=== PATIENT | female | born 1995 | race Caucasian/White ===

== ENCOUNTER 2016-09-16 14:03 | Emergency (ER) | payer OTHER ==
[~2016-09-16] VITALS: Ht 157.5 cm; Wt 53.5 kg
[2016-09-16 17:16] LABS: BASOPHIL % 0.6 % (0-2); PLATELET COUNT 376 x10^3mcL (130-400); RED CELL DISTRIBUTION WIDTH 11.6 % (11.5-14.5)
[2016-09-16 17:40] LABS: T4(THYROXINE) 7.6 ug/dL (4.7-13.3)
[2016-09-16 18:46] VITALS: BP 121/66
== END 2016-09-16 18:46 | disposition home or self-care (01) ==
LOC: ED 14:03
PROVIDERS: Emergency Medicine
DX: N93.9 Abnormal uterine and vaginal bleeding, unspecified (principal)

== ENCOUNTER 2017-03-08 01:59 | Emergency (ER) | payer OTHER ==
[2017-03-08 03:56] VITALS: BP 114/76
== END 2017-03-08 03:56 | disposition home or self-care (01) ==
LOC: ED 01:59
DX: J02.0 Streptococcal pharyngitis (principal)
CPT/HCPCS: J1100

== ENCOUNTER 2017-09-22 22:34 | Emergency (ER) | payer OTHER ==
[~2017-09-22] VITALS: Ht 157.5 cm; Wt 55.3 kg
[2017-09-22 22:43] VITALS: Ht 157.5 cm; Wt 55.3 kg
[2017-09-22 23:41] VITALS: BP 134/73
== END 2017-09-22 23:41 | disposition home or self-care (01) ==
LOC: ED 22:34
DX: L98.9 Disorder of the skin and subcutaneous tissue, unspecified (principal)

== ENCOUNTER 2018-09-21 23:44 | Emergency (ER) | payer OTHER ==
[~2018-09-21] VITALS: Ht 157.5 cm; Wt 55.3 kg
[2018-09-21 23:48] VITALS: Ht 157.5 cm; Wt 55.3 kg
[2018-09-22 01:25] VITALS: BP 137/82
== END 2018-09-22 01:25 | disposition home or self-care (01) ==
LOC: ED 23:44
DX: N76.0 Acute vaginitis (principal)
CPT/HCPCS: 87491; 87591

== ENCOUNTER 2018-12-29 10:39 | Inpatient (IN) | payer MEDICAID ==
[~2018-12-29] VITALS: Ht 157.5 cm; Wt 55.3 kg
--- NOTE | 2018-12-29 11:05 | NUR ---
LAB AT BEDSIDE FOR BLOOD DRAW
--- NOTE | 2018-12-29 11:07 | NUR ---
PT BIBA FROM HER FRIEND'S HOME FOR ATTEMPTED SUICIDE VIA OVERDOSE ON ATIVAN TABLETS.PER PATIENT SHE TOOK 14 0.5MG ATIVAN ABOUT 2 HOURS AGO. PT ADMITS TO "[employer] [place]KE" LAST NIGHT AND DRINKING; MEDICS REPORT PT DRANK 1/2 BOTTLE OF DRAKE NAVARRO LAST NIGHT. PT ALSO ADMITTED TO TAKING ONE TABLET OF ATIVAN0.5MG LAST NIGHT. PT STS SHE TAKES ATIVAN FOR DEPRESSION AND ANXIETY. PT'S BELONGINGS ALL REMOVED AND PLACED TO RADIO CABINET WITH LABEL. PT DENIES SI AT THIS TIME STATING SHE REGRETTED IT IMMEDIATELY. PT'S SISTER IS AT BEDSIDE
--- NOTE | 2018-12-29 11:11 | NUR ---
PT SEEN BY DR CLARKE
--- NOTE | 2018-12-29 11:14 | NUR ---
[facility] CALLED AND STATED PT HAS ADDED SEDATION AND RISK FOR RESPIRATORY SYSTEM DEPRESSION - KEEP PATIENT ON O2 MONITOR; DON'T GIVE FLUMAZENIL FOR OVERDOSE; CONTINUE TO MONITOR PATIENT.
[2018-12-29 11:23] LABS: CALCIUM 7.9 mg/dL (8.5-10.1); CARBON DIOXIDE 26.2 mmol/L (21-32); CHLORIDE SERUM 104 mmol/L (98-107); CREATININE SERUM 0.6 mg/dL (0.6-1.0); GFR1 > 60 mL/min; GLUCOSE SERUM 103 mg/dL (74-106); POTASSIUM SERUM 3.3 mmol/L (3.5-5.1); SODIUM SERUM 142 mmol/L (136-145)
[2018-12-29 11:31] LABS: ALBUMIN 3.9 g/dL (3.4-5.0); ALKALINE PHOSPHATASE 60 U/L (46-116); ALT/SGPT 32 U/L (14-59); AST/SGOT 24 U/L (15-37); BASOPHIL % 0.5 % (0-2); BILIRUBIN TOTAL 0.3 mg/dL (0.20-1.00); PLATELET COUNT 393 x10^3mcL (130-400); RED CELL DISTRIBUTION WIDTH 12.9 % (11.5-14.5); TOTAL PROTEIN, SERUM 7.5 g/dL (6.4-8.2)
[2018-12-29 11:41] LABS: FREE T4 1.21 ng/dL (0.76-1.46); FREE THYROXINE INDEX 3.3 ug/dL (1.4-4.5); T3 TOTAL 1.28 ng/mL; T4(THYROXINE) 9.2 ug/dL (4.7-13.3)
[2018-12-29 11:48] LABS: AMPHETAMINE QUAL UR NONE DETECTED (See below)
--- NOTE | 2018-12-29 12:23 | NUR ---
CALLED [facility] TO REQUEST 5150 TO BE WRITTEN. SPOKE TO TAMI, DISPATCH
--- NOTE | 2018-12-29 12:37 | NUR ---
SPOKE TO OFFICER SHLOMO BAHENA [facility]. HE WILL BE OUT TO WRITE 2107 HOLD
--- NOTE | 2018-12-29 12:45 | NUR ---
DR CLARKE SPOKE WITH PT AND SISTER AT BEDSIDE REGARDING POC.PT OK TO EAT/DRINK PER DR CLARKE.PT STILL DROWSY BUT COOPERATIVE AND NO CHANGES WITH DROWSINESS INTENSITY. PT WAS ABLE TO WALK STEADILY WITH MINIMAL ASST FROM BATHROOM TO RCHALMETTE
--- NOTE | 2018-12-29 13:03 | NUR ---
OFFICER SHRUTI HERE TO PLACE PT ON 5150 FOR DTS
--- NOTE | 2018-12-29 13:15 | NUR ---
ORIGINAL 5150 HOLD PLACED TO CHART
--- NOTE | 2018-12-29 14:44 | NUR ---
PT WOKE UP- WAS STILL VERTY SLEEPY AND HAD SLURRED SPEECH. PT STATED HER SISTER WAS AT BEDSIDE WHICH WAS CORRECT. PT BP IMPROVED AND IS AT 99/57 AT THIS TIME
[2018-12-29] MEDS ORDERED: ATIVAN0.5 M1 PO (14:57)
--- NOTE | 2018-12-29 15:03 | NUR ---
REPORT GIVEN TO ERIC ANGELES
--- NOTE | 2018-12-29 15:05 | NUR ---
RECEIVED REPORT FROM BURT ANGELES IN ED. AWAITING PATIENT ARRIVAL TO FLOOR.
[2018-12-29 15:41] VITALS: BP 94/58
--- NOTE | 2018-12-29 15:53 | NUR ---
RECEIVED PT FROM ER, PT ADMIT FOR HYPOTENSION AND BENZO OVERDOSE. PT IS VERY LETHERAGIC AT THIS MOMENT, WAKE UP BY VOICE AND SHAKING, A/O 4 ,WHILE AWAKE AND ABLE TO ANSWER SOME QUESTIONS, BUT CONSTANTLY FALL INTO SLEEP DURING THE ASSESSMENT. LUNG SOUND CLEAR BILATERAL, NO COUGH, NO SOB, PT IS ON TELE 6, NSR, DENY ANY CHEST PAIN OR DISCOMFORT, BOWEL SOUND PRESENT ALL 4 QUADRANTS, NO DISTENTION, NO TENDER. PEDAL PULSE PRESENT BOTH FEET, IV AT RIGTH AC, NO LEAKING, NO INFILTRATION. PT CURRENTLY ON 5150 HOLD, FOR SUICIDAL. ACCORDING THE MOTHER. PT CALLED HER STATE SHE TOOK 15 PILLS ATIVAN. AND STATE SHE WANT TO KILL HERSELF. TALKED TO PT AND PT DENY ANY SUICIDAL THOUGHS AT THIS MOMENT. ALL ADLS ASSIST, ALL NEED MET, CALL LIGHT IN REACH, SITTER AT BEDSIDE, WILL CONTINUE TO MONITOR THE PT.
--- NOTE | 2018-12-29 16:42 | NUR ---
SPOKE WITH TAMI KISER TO REQUEST OK FOR OUTSIDE FOOD. TAMI HERNANDEZ FOR FAMILY TO BRING OUTSIDE FOOD.
[2018-12-29 17:51] VITALS: BP 114/89
[2018-12-29 18:12] VITALS: Ht 157.5 cm; Wt 55.3 kg
--- NOTE | 2018-12-29 18:17 | NUR ---
PATIENT'S MOTHER REQUESTED THAT SHE REPLACE PATIENT'S SISTER EMERGENCY CONTACT. INSTRUCTED MOTHER TO GO TO ADMISSIONS TO CHANGE THAT INFORMATION.
--- NOTE | 2018-12-29 18:36 | NUR ---
PER PATIENT REQUEST, THE CASTANEDA CATHERTER SHE CAME UP FROM THE ED WITH WAS REMOVED. 500 ML CLEAR YELLOW URINE EMPTIED. PT TOLERATED IT WELL AND FELT THE URGE TO URINATE IMMEDIATELY AFTER.
--- NOTE | 2018-12-29 19:16 | NUR ---
REPORT GIVEN TO GURVINDER ANGELES. PATIENT RESTING COMFORTABLY IN BED WITH FAMILY AND SITTER AT BEDSIDE. ALL NEEDS MET. ALL QUESTIONS AND CONCERNS ADDRESSED. ALL CARES ENDORSED.
--- NOTE | 2018-12-29 19:28 | NUR ---
AWAKE AND VERBALLY RESPONSIVE. ABLE MAKE NEEDS KNOWN. SLIGHTLY DROWSY, APPARENTLY APPREHENSIVE. FAMILY AT BEDSIDE VERY SUPPORTIVE OF PATIENTS CURRENT PLAN OF CARE. SITTER AT BEDSIDE FOR SAFETY. DENIES ANY PAIN/DISCOMFORT AT THIS TIME.
[2018-12-29 20:35] VITALS: BP 94/61
--- NOTE | 2018-12-30 00:01 | NUR ---
EYES CLOSED, NO FACIAL GRIMACING NOTED. RESPIRATION EVEN AND UNLABORED. CALL LIGHT WITHIN REACH. SITTER AT BEDSIDE.
--- NOTE | 2018-12-30 05:17 | NUR ---
AMBULATED TO BATHROOM FOR PERSONAL NEEDS. KEPT CLEAN AND DRY. ALL NEEDS ATTENDED.
[2018-12-30 06:31] VITALS: BP 85/51
--- NOTE | 2018-12-30 07:05 | NUR ---
ASSUMED CARE OF PATIENT. SEEN RESTING IN BED WITH EQUAL AND UNLABORED RESPIRATIONS. NO APPARENT DISTRESS NOTED. IV ON RAC PATENT AND INFUSING NS AT 100ML/HR. SITTER REMAINS AT BEDSIDE. WILL CONTINUE TO MONITOR.
[2018-12-30 08:02] LABS: CALCIUM 7.7 mg/dL (8.5-10.1); CARBON DIOXIDE 24.6 mmol/L (21-32); CHLORIDE SERUM 110 mmol/L (98-107); CREATININE SERUM 0.8 mg/dL (0.6-1.0); GFR1 > 60 mL/min; GLUCOSE SERUM 84 mg/dL (74-106); POTASSIUM SERUM 4.1 mmol/L (3.5-5.1); SODIUM SERUM 142 mmol/L (136-145)
--- NOTE | 2018-12-30 08:02 | NUR ---
PATIENT DENYING ANY SI AT THIS TIME.
[2018-12-30 08:23] LABS: BASOPHIL % 0.6 % (0-2); PLATELET COUNT 313 x10^3mcL (130-400); RED CELL DISTRIBUTION WIDTH 13.1 % (11.5-14.5)
[2018-12-30 09:05] VITALS: BP 107/59
--- NOTE | 2018-12-30 10:08 | NUR ---
PATIENT IN ROOM WITH NO COMPLAINTS OF PAIN OR DISCOMFORT. SITTER REMAINING AT BEDSIDE. NO NEW ISSUES.
--- NOTE | 2018-12-30 11:28 | NUR ---
PATIENT COMPLAINING OF DISCOMFORT AT LAC IV SITE. IV DC. NEW 22G IV PLACED ON RIGHT FOREARM.
--- NOTE | 2018-12-30 12:53 | NUR ---
PATIENT TRANSFERRED TO [facility]. TELEMONITOR REMOVED. SALINE LOCKED PER ORDERS.
--- NOTE | 2018-12-30 14:01 | NUR ---
PATIENT IN ROOM WITH FAMILY AT BEDSIDE. SITTER AT BEDSIDE. NO NEW ISSUES.
--- NOTE | 2018-12-30 15:32 | NUR ---
PATIENT IN ROOM WITH FRIENDS AT BEDSIDE. NO APPARENT DISTRESS NOTED. NO COMPLAINTS OF PAIN OR DISCOMFORT. SITTER REMAINS AT BEDSIDE. NO NEW ISSUES.
[2018-12-30 17:30] VITALS: BP 139/72
--- NOTE | 2018-12-30 17:40 | NUR ---
PATIENTS MOTHER AT TIP CUTTER REPORTING THAT PATIENT IS IRRITABLE AND TREMULOUS. PATIENTS MOTHER STATES DAUGHTER HAS BEEN DRINKING FOR 2 WEEKS STRAIGHT AND IS GOING TO WITHDRAWALS. UPON ASSESSMENT OF PATIENT, PATIENT IS TEARFUL AND WANTING TO GO HOME, NO APPARENT SYMPTOMS OF ALCOHOL WITHDRAWAL ARE NOTED. DENIES ANY TREMORS, HEADACHES, CHILLS. WHEN DISCUSSING WITH THE PATIENT, STATE SHE FEELS "TRAPPED" IN HER ROOM AND WISHES SHE CAN GO OUTSIDE. EXPLAINED TO PATIENT OF HER SITUATION AND PLAN WITH AND PATIENT WAS UNDERSTANDING.
--- NOTE | 2018-12-30 18:46 | NUR ---
PATIENT REQUESTING TO BE "WALKED OUT TO SMOKE A CIGARETTE." DISCUSSED WITH PATIENT, WILLING TO USE NICOTINE PATCH. MARGI GARCIA.
--- NOTE | 2018-12-30 18:52 | NUR ---
PATIENT IN ROOM WITH FAMILY AT BEDSIDE. NO COMPLAINTS OF PAIN OR DISCOMFORT. SALINE LOCKED AT THIS TIME. WILL ENDORSE CARE TO ONCOMING RN.
--- NOTE | 2018-12-30 19:39 | NUR ---
AWAKE AND VERBALLY RESPONISVE. ABLE TO MAKE NEEDS KNOWN. SKIN WARM AND DRY TO TOUCH. RESPIRATION EVEN AND UNLABORED. DENIES ANY PAIN/DISCOMFORT AT THIS TIME. DENIES ANY IDEATION TO HURT SELF/OTHERS. SITTER AT BEDSIDE FOR CLOSE WATCH. WILL CONTINUE TO MONITOR..
[2018-12-30 19:50] VITALS: BP 122/75
--- NOTE | 2018-12-30 21:30 | NUR ---
STARTED ON ZOLOGT 25MG PO ORDERED. NICODERM CQ APPLIED ID TO RIGHT SHOULDER. SVETLANA RIBERA PROVIDED AND TOLERATED WELL.
--- NOTE | 2018-12-31 00:01 | NUR ---
EYES CLOSED, APPARENTLY ASLEEP SOUNDLY. BUT RESPONSIVE TO VERBAL/TACTILE STIMULI. CALL LIGHT WITHIN REACH.
--- NOTE | 2018-12-31 02:00 | NUR ---
C/O NAUSEA BUT NO VOMITING NOTED. ZOFRAN 4MG IVP PRN MEDICATION.
--- NOTE | 2018-12-31 03:00 | NUR ---
PT CALIMED ZOFRAN VERY EFFECTIVE, TOTAL RELIEF , NO FURTHER NAUSEA. CALM IN BED AT THIS TIME.
--- NOTE | 2018-12-31 05:22 | NUR ---
DENIES ANYPAIN/DISCOMFORT ATY THIS TIME. KEPT CLEAN AND DRY, ALL NEEDS ATTENDED
[2018-12-31 05:46] VITALS: BP 100/56
--- NOTE | 2018-12-31 07:40 | NUR ---
PATIENT RESTING IN BED, DENIES HEADACHE & DIZZINESS. NO ACUTE DISTRESS NOTED. PATIENT ON 5150 HOLD. PATIENT DENIES SUICIDAL IDEATIONS, DENIES ACTIVE PLAN FOR SUICIDE. PATIENT DENIES N/V. IV TO LFA SALLINE LOCK, NO S/S OF INFILTRATION. CALL LIGHT WITHIN REACH, BED IN LOW POSITION. SISTER AT BEDSIDE FOR SAFETY PRECAUTION. WILL CONTINUE TO MONITOR FOR CHANGES.
[2018-12-31 08:30] VITALS: BP 110/81
[2018-12-31 12:25] VITALS: BP 115/76
--- NOTE | 2018-12-31 13:00 | NUR ---
PATIENT IS SITTING UP IN BED EATING, PATIENT TOLERATING FOOD. SITTER AT BEDSIDE. WILL CONTINUE TO MONITOR .
--- NOTE | 2018-12-31 14:30 | NUR ---
PATIENT IS UP AND SHOWERING, NO ACUTE DISTRESS NOTED. WILL CONTINUE TO MONITOR PATIENT.
[2018-12-31 16:48] VITALS: BP 106/59
--- NOTE | 2018-12-31 17:37 | NUR ---
PATIENT UP AND WALKING TO THE BATHROOM AT THIS TIME, PATIENT DENIES PÉREZ, N,V. NO ACUTE DISTRESS NOTED. FAMILY AT BEDSIDE. SISTER AT BEDSIDE FOR SAFETY. IV TO LFA SALINE LOCK, NO S/S OF INFILTRATION. CALL LIGHT WITHIN REACH, BED IN LOW POSITION, WILL CONTINUE TO MONITOR & ENDORSE REPORT TO NIGHT NURSE.
--- NOTE | 2018-12-31 19:33 | NUR ---
RECEIVED AWAKE SITTING AT THE FOOT PART OF TBE BED, ALERT AND ORIENTED [place], DENIES ANY IDEATION OF HURTING SELF/HURTING OTHERS. SITTER AT BEDSIDE FOR SAFETY PRECAUTION. CALL LIGHT MIAHITHIN REACH, INSTRUCTEDTO CALL FOR ANY ASSISTANCE NEEDED AND VERBALIZED UNDERSTANDING.
[2018-12-31 21:42] VITALS: BP 126/60
--- NOTE | 2019-01-01 00:01 | NUR ---
EYES CLOSED, NO FACIA GRIMACING NOTED. RESPIRATION EVEN AND UNLABORED. NO S/S OF PAIN/DISCOMFORT. CALL LIGHT WITHIN REACH. SITTER AT BEDSIDE FOR SAFETY.
--- NOTE | 2019-01-01 03:49 | NUR ---
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 RROUTINE ADMISSION CARE RENDERED. PLACED COMDORTABLY IN BED. PAIN LEVEL 0/10, WAS GIVEN TORADOL IV AT ER AND PT CLAIMED TOTAL RELIEF. IV SITE AT THE LEFT HNAD INTACT AND PATENT. SKIN WARM AND DRY. NO SKIN BREAKDOWN NOTED. P;ACED CALL LIGHT WITHIN REACH. BED IN LOWEST POSITION AND LOCKED FOR SAFETY. LACY WAS CONTACTED FOR ORDERS.
[2019-01-01 05:29] VITALS: BP 110/69
--- NOTE | 2019-01-01 05:31 | NUR ---
APPARENTLY CONFORTABLE AT THIS TIME. NO FACIAL GRIAMCING NOTED. KEPT CLEAN AND DRY. CALL LIGHT WITHIN REACH.
[2019-01-01 07:30] VITALS: BP 107/63
--- NOTE | 2019-01-01 08:28 | NUR ---
RECEIVED IN NO DISTRESS, AWAKE, ALERT AND ORIENTED. NO C/O PAIN OR DISCOMFORT AT THIS TIME. PT DENIES ANY SUICIDAL IDEATION. VS STABLE. HL PATENT. SITTER AT BEDSIDE, CALL LIGHT WITHIN REACH. WILL CONTINUE WITH PLAN OF CARE.
--- NOTE | 2019-01-01 12:20 | NUR ---
PT C/O LIGHT HEADACHE 10/23. TYLENOL GIVEN. PT IN NO DISTRESS. SITTER AT BEDSIDE.
--- NOTE | 2019-01-01 13:06 | NUR ---
[facility] s/w Yousuf no beds but packet will be fax for wait list once new 5150 is written and fax to call center [facility] s/w Michael no beds but packet will be faxed for wait list once new 5150 is written and fax to call center [facility] s/w Monie no beds [facility] s/w Yarsani no beds [place] s/w Laura no beds [facility] s/w Deja no beds
--- NOTE | 2019-01-01 14:41 | NUR ---
S/W TISH Goff. Still waiting for MD to write 5150 if patient still meet criteria
--- NOTE | 2019-01-01 14:46 | NUR ---
Discount pharmacy card and list to low cost medical clinics given to patient by Vannesa.
[2019-01-01 16:45] VITALS: BP 96/56
--- NOTE | 2019-01-01 17:12 | NUR ---
S/W Emmy (RN for patient) regarding new 5150 for patient. Transferred me to [facility] (SW). did not leave a message since i left her a message already. Will wait on new 5150 for placement
--- NOTE | 2019-01-01 18:43 | NUR ---
REMAINS IN NO DISTRESS. AWAKE AND ALERT. NO CHANGES IN VS. NO C/O PAIN OR DISCOMFORT. PT DENIES ANY SUICIDAL IDEATION. FAMILY AT BEDSIDE. SITTER AT BEDSIDE. CALL LIGHT WITHIN REACH. WILL BE ENDORSED TO INCOMING SHIFT.
[2019-01-01 19:00] VITALS: BP 107/70
--- NOTE | 2019-01-01 19:00 | NUR ---
RECEIVED PT IN BED COMFORTABLY RESTING WITH VISITOR AT BEDSIDE. NO DISTRESS NOTED. DENIES ANY SUICIDAL AND PAIN. IV SITE PATENT AND INTACT. BED IN LOWEST POSITION,CALL LIGHT WITHIN REACH. WILL CONTINUE TO MONITOR.
[2019-01-01 21:11] VITALS: BP 107/70
--- NOTE | 2019-01-01 21:40 | NUR ---
PT ABOUT TO GO. DISCHARGED PACKET GIVEN. NO IV ACCESS AND ID BAND. PT AAOX4.NO SOB NOTED. ACCOMPANIED BY TEXTILE SUPERVISOR DOWNSTAIRS WITH FAMILY.
== END 2019-01-01 21:42 | disposition home or self-care (01) | DRG 817 ==
LOC: ED 10:39 → DU 14:37 → MU 14:37 → DU 15:20 → MU 12-30 12:59
PROVIDERS: Emergency Medicine; ADMIT Internal Medicine
DX: T42.4X2A Poisoning by benzodiazepines, intentional self-harm, initial encounter (principal); G92 Toxic encephalopathy; F33.2 Major depressive disorder, recurrent severe without psychotic features; I95.9 Hypotension, unspecified; F41.0 Panic disorder [episodic paroxysmal anxiety]; E87.6 Hypokalemia; F14.129 Cocaine abuse with intoxication, unspecified; F12.10 Cannabis abuse, uncomplicated; F10.129 Alcohol abuse with intoxication, unspecified; Y90.6 Blood alcohol level of 120-199 mg/100 ml; Y92.018 Other place in single-family (private) house as the place of occurrence of the external cause; Z68.22 Body mass index [BMI] 22.0-22.9, adult
CPT/HCPCS: 84439; G0378; G0480; J2405; J7030

== ENCOUNTER 2020-05-02 10:47 | Emergency (ER) | payer OTHER, SELFPAY ==
[~2020-05-02] VITALS: Ht 157.5 cm; Wt 53.5 kg
[~2020-05-02 10:47] MED LIST: ATIVAN0.5 M1 PO
[2020-05-02 10:54] VITALS: BP 113/79; Ht 157.5 cm; Wt 53.5 kg
== END 2020-05-02 13:20 | disposition home or self-care (01) ==
LOC: ED 10:47
DX: U07.1 COVID-19 (principal)
CPT/HCPCS: U0003